=== PATIENT | female | born 1940 | race Caucasian/White ===

== ENCOUNTER → 2016-06-12 | Outpatient (CLI) | payer MEDICARE | LOC: GMAB 14:27 | PROVIDERS: ATTEND Family Medicine | DX: R06.02 Shortness of breath (principal) ==

== ENCOUNTER → 2016-12-08 | Outpatient (CLI) | payer MEDICARE | LOC: GMAB 10:09 | PROVIDERS: ATTEND Family Medicine | DX: I10 Essential (primary) hypertension (principal) ==

== ENCOUNTER → 2017-05-27 | Outpatient (CLI) | payer MEDICARE | END | disposition home or self-care (01) | LOC: RESP 13:52 | PROVIDERS: ATTEND Family Medicine | DX: R00.0 Tachycardia, unspecified (principal) ==

== ENCOUNTER → 2017-09-30 | Outpatient (CLI) | payer MEDICARE | LOC: GMAB 17:34 | PROVIDERS: ATTEND Family Medicine | DX: R19.7 Diarrhea, unspecified (principal) ==

== ENCOUNTER → 2018-02-01 | Outpatient (CLI) | payer MEDICARE | LOC: GMAE 14:45 | PROVIDERS: ATTEND Family Medicine | DX: I10 Essential (primary) hypertension (principal) ==

== ENCOUNTER → 2018-04-13 | Outpatient (CLI) | payer MEDICARE | LOC: YCFC.O 15:39 | PROVIDERS: ATTEND Family Medicine | DX: R07.9 Chest pain, unspecified (principal) ==

== ENCOUNTER 2018-08-04 19:23 | Emergency (ER) | payer MEDICARE ==
[2018-08-04 20:00] VITALS: TEMP 98.4
--- NOTE | 2018-08-04 20:29 | ED.PDOC ---
History of Present Illness - General Chief Complaint: Blood Pressure Problem Stated Complaint: elevated blood pressure Time Seen by Provider: 08/04/18 19:58 Source: patient Exam Limitations: no limitations - History of Present Illness Initial Comments: Patient presents with hypertension. She says it was 120s systolic this morning but over the course of the day it has increased. It was 150s systolic before she came to the E.D. She said that she had a tingling sensation in the back of her neck and left arm and hand that has since resolved. She has a history of anxiety and has a Xanax RX. She says she only takes it once every 2-3 months. She says she occasionally gets dyspnea but believes that is because of her weight because she can "run" in the swimming pool without getting short of breath. She denies history of AMI or CHF but says that a doctor did a "PET scan" of her heart and found a "spot on it". She was told her heart would get worse but that it hasn't, yet. Denies COPD or history of smoking. 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 She was on Lipitor once but it caused her liver enzymes to elevate so she stopped. She has taken all of her scheduled blood pressure medications today. She also has taken two half doses of Xanax today, once 7 hours PERIPHERAL VASCULAR TECH and another 4 hours PERIPHERAL VASCULAR TECH. Denies chest pain. No history of DM. No other complaints. Timing/Duration: other - 12 hours Severity: moderate Improving Factors: nothing Associated Symptoms: other - as in HPI Allergies/Adverse Reactions: Allergies NO KNOWN ALLERGY Allergy (Verified 08/04/18 19:59) Home Medications: Ambulatory Orders ALPRAZolam [Xanax] 0.25 mg PO DAILY 01/07/16 Aspirin [Aspirin Adult Low Dose] 81 mg PO DAILY 01/07/16 Chlorthalidone 25 mg PO DAILY 01/07/16 Esomeprazole Magnesium [Nexium] 40 mg PO DAILY 01/07/16 Metoprolol Succinate [Metoprolol Succinate ER] 50 mg PO BEDTIME 01/07/16 Valsartan 320 mg PO DAILY 01/07/16 amLODIPine BESYLATE [Norvasc] 2 mg PO DAILY 01/07/16 Review of Systems - Review of Systems Constitutional: States: no symptoms reported EENTM: States: no symptoms reported Respiratory: States: no symptoms reported Cardiology: States: see HPI Gastrointestinal/Abdominal: States: no symptoms reported Genitourinary: States: no symptoms reported Musculoskeletal: States: no symptoms reported Skin: States: no symptoms reported Neurological: States: no symptoms reported Endocrine: States: no symptoms reported Hematologic/Lymphatic: States: no symptoms reported Past Medical History (General) - Patient Medical History Hx Seizures: No Hx Stroke: No Hx Dementia: No Hx Asthma: No Hx of COPD: No Hx Cardiac Disorders: No Hx Congestive Heart Failure: No Hx Pacemaker: No Hx Hypertension: Yes Hx Thyroid Disease: No Hx Diabetes: No Hx Gastroesophageal Reflux: Yes Hx Renal Disease: No Hx Cancer: Yes - Breast Hx of HIV: No Hx Hepatitis C: No Hx MRSA: No Surgical History: cholecystectomy - Vaccination History Hx Tetanus, Diphtheria Vaccination: No Hx Influenza Vaccination: No Hx Pneumococcal Vaccination: No Immunizations Up to Date: No - Social History Hx Tobacco Use: No Hx Chewing Tobacco Use: No Hx Alcohol Use: No Hx Substance Use: No Hx Substance Use Treatment: No Hx Depression: No Hx Physical Abuse: No Hx Emotional Abuse: No Hx Suspected Abuse: No - Female History Patient is a Female of Child Bearing Age (10 -59 yrs old): No Patient : No Family Medical History - Family History Mother Family History: Unknown Physical Exam - Physical Exam General Appearance: Alert Eye Exam: bilateral normal Ears, Nose, Throat: normal ENT inspection Neck: non-tender, full range of motion, supple Respiratory: lungs clear, normal breath sounds Cardiovascular/Chest: normal peripheral pulses, regular rate, rhythm, no edema Gastrointestinal/Abdominal: normal bowel sounds, non tender, soft Back Exam: normal inspection, no CVA tenderness Extremity: normal range of motion, non-tender, normal inspection Neurologic: no motor/sensory deficits, alert, normal mood/affect, oriented x 3 Skin Exam: normal color Lymphatic: no adenopathy Progress - Progress Progress: 08/04/18 21:33 Laboratory Tests 08/04/18 08/04/18 08/04/18 20:08 20:08 20:08 WBC 8.5 RBC 4.33 Hgb 13.3 Hct 39.8 MCV 91.9 MCH 30.8 MCHC 33.5 RDW 12.5 Plt Count 249 MPV 8.2 Absolute Neuts (auto) 4.60 Absolute Lymphs (auto) 3.30 Absolute Monos (auto) 0.50 Absolute Eos (auto) 0.00 Absolute Basos (auto) 0.10 Neutrophils % 54.6 Lymphocytes % 38.4 Monocytes % 5.8 Eosinophils % 0.5 L Basophils % 0.7 PT INR PTT (SP) Sodium 129 L Potassium 3.3 L Chloride 93 L Carbon Dioxide 23 Anion Gap 16.3 BUN 15 Creatinine 0.91 BUN/Creatinine Ratio 16.5 Random Glucose 186 H Serum Osmolality 264.6 L Calcium 9.1 Total Bilirubin 0.6 AST 26 ALT 16 Alkaline Phosphatase 53 Creatine Kinase 37 CK-MB (CK-2) 1.4 CK-MB (CK-2) % Not Reportable Troponin I < 0.02 B-Natriuretic Peptide Serum Total Protein 7.8 Albumin 3.9 Globulin 3.9 H Albumin/Globulin Ratio 1.0 L TSH Thyroxine (T4) Urine Color Urine Appearance Urine pH Ur Specific [place] Urine Protein Urine Glucose (UA) Urine Ketones Urine Blood Urine Nitrite Urine Bilirubin Urine Urobilinogen Ur Leukocyte Esterase Urine RBC Urine WBC Ur Epithelial Cells Urine Bacteria 08/04/18 08/04/18 08/04/18 20:08 20:08 20:08 WBC RBC Hgb Hct MCV MCH MCHC RDW Plt Count MPV Absolute Neuts (auto) Absolute Lymphs (auto) Absolute Monos (auto) Absolute Eos (auto) Absolute Basos (auto) Neutrophils % Lymphocytes % Monocytes % Eosinophils % Basophils % PT 10.3 INR 1.03 PTT (SP) 27.2 Sodium Potassium Chloride Carbon Dioxide Anion Gap BUN Creatinine BUN/Creatinine Ratio Random Glucose Serum Osmolality Calcium Total Bilirubin AST ALT Alkaline Phosphatase Creatine Kinase CK-MB (CK-2) CK-MB (CK-2) % Troponin I B-Natriuretic Peptide 60.8 Serum Total Protein Albumin Globulin Albumin/Globulin Ratio TSH 2.76 Thyroxine (T4) 9.88 Urine Color Urine Appearance Urine pH Ur Specific [place] Urine Protein Urine Glucose (UA) Urine Ketones Urine Blood Urine Nitrite Urine Bilirubin Urine Urobilinogen Ur Leukocyte Esterase Urine RBC Urine WBC Ur Epithelial Cells Urine Bacteria 08/04/18 20:12 WBC RBC Hgb Hct MCV MCH MCHC RDW Plt Count MPV Absolute Neuts (auto) Absolute Lymphs (auto) Absolute Monos (auto) Absolute Eos (auto) Absolute Basos (auto) Neutrophils % Lymphocytes % Monocytes % Eosinophils % Basophils % PT INR PTT (SP) Sodium Potassium Chloride Carbon Dioxide Anion Gap BUN Creatinine BUN/Creatinine Ratio Random Glucose Serum Osmolality Calcium Total Bilirubin AST ALT Alkaline Phosphatase Creatine Kinase CK-MB (CK-2) CK-MB (CK-2) % Troponin I B-Natriuretic Peptide Serum Total Protein Albumin Globulin Albumin/Globulin Ratio TSH Thyroxine (T4) Urine Color Yellow Urine Appearance Clear Urine pH 6.0 Ur Specific [place] 1.010 Urine Protein Negative Urine Glucose (UA) Negative Urine Ketones Negative Urine Blood Negative Urine Nitrite Negative Urine Bilirubin Negative Urine Urobilinogen 0.2 Ur Leukocyte Esterase Negative Urine RBC 0 Urine WBC 1-3 Ur Epithelial Cells 1-3 Urine Bacteria 0 08/04/18 21:36 EKG read by me showed NSR with no ST changes nor T wave inversions. There was a LBBB that was on the previous EKG. Troponin negative. CXR showed no acute disease. The patient's blood pressure self corrected to 121/88 while she was in the E.D. She was instructed to follow up with Dr. Bashir for possible medication adjustments. Care instructions given. E.R. warnings given. Questions were elicited and answered. Patient voiced understanding and agreement with the plan. - EKG/XRAY/CT CT Ordered: No CT Interpretation Call Back: No Departure - Departure Clinical Impression: Hypertension Disposition: Discharge to Home or Self Care Condition: Good Departure Forms: ED Discharge - Pt. Copy, Patient Portal Self Enrollment Instructions: DI for High Blood Pressure Diet: resume usual diet Activity: increase activity as tolerated Referrals: ASHELY BASHIR MD [Primary Care Provider] - 1-2 Weeks Home Medications: Ambulatory Orders ALPRAZolam [Xanax] 0.25 mg PO DAILY 01/07/16 Aspirin [Aspirin Adult Low Dose] 81 mg PO DAILY 01/07/16 Chlorthalidone 25 mg PO DAILY 01/07/16 Esomeprazole Magnesium [Nexium] 40 mg PO DAILY 01/07/16 Metoprolol Succinate [Metoprolol Succinate ER] 50 mg PO BEDTIME 01/07/16 Valsartan 320 mg PO DAILY 01/07/16 amLODIPine BESYLATE [Norvasc] 2 mg PO DAILY 01/07/16 Additional Instructions: See Dr. Bashir in the next 1-2 weeks for possible adjustment of your blood pressure medications. Return to the E.R. for chest pain, light-headednes, or shortness of breath. Critical Care Note - Critical Care Note Total Time (mins): 35
[2018-08-04] MEDS ORDERED: METOPROLOL TARTRATE INJ 5 MG/5 ML VIAL IV ONE (20:45)
--- NOTE | 2018-08-04 20:45 | RAD ---
EXAM: Chest,1 View CLINICAL INDICATION: Hypertension COMPARISON: 01/07/2016 FINDINGS: A single view of the chest was obtained. The heart size is normal. The pulmonary vascularity is unremarkable. The lungs are clear. There is no consolidation, infiltrate, pleural effusion, or pneumothorax. IMPRESSION: No evidence of active pulmonary disease. Electronically signed by: Alex Bowie MD 08/04/2018 8:41 PM CDT
[2018-08-04 21:36] VITALS: BP 118/82; O2SAT 95
== END 2018-08-04 21:45 | disposition home or self-care (01) ==
LOC: ER 19:23
DX: I10 Essential (primary) hypertension (principal); K21.9 Gastro-esophageal reflux disease without esophagitis; F41.9 Anxiety disorder, unspecified; Z85.3 Personal history of malignant neoplasm of breast; Z79.82 Long term (current) use of aspirin; Z79.899 Other long term (current) drug therapy

== ENCOUNTER 2018-11-04 18:44 | Emergency (ER) | payer MEDICARE ==
[2018-11-04] MEDS ORDERED: LIDOCAINE HCL 2% (MOUTH-THROAT) 15 ML UD ONE (19:02)
[2018-11-04] MEDS ORDERED: ALUM & MAG HYDROX-SIMETHICONE 30 ML UD ONE (19:02)
[2018-11-04] MEDS: ALUM & MAG HYDROX-SIMETHICONE 30 ML, LIDOCAINE VISCOUS 2% 15 ML PO ONE ×6 (19:12→19:26)
--- NOTE | 2018-11-04 19:36 | RAD ---
EXAM: XR Chest, 2 Views CLINICAL HISTORY: 78 years old and is Female; upper chest pain TECHNIQUE: Frontal and lateral views of the chest. COMPARISON: 08/04/2018 FINDINGS: Limitations: None. Lungs: There is mild chronic airway thickening. Minimal linear scarring or atelectasis present in the right middle lobe. Pleural space: Unremarkable. No pneumothorax. Heart: Unremarkable. No cardiomegaly. Mediastinum: Unremarkable. Bones/joints: Unremarkable. IMPRESSION: Chronic changes as above. No acute disease. Electronically signed by: Carole Freeman MD 11/04/2018 7:34 PM CDT
[2018-11-04] MEDS ORDERED: POTASSIUM CHLORIDE ELIXIR 20 MEQ/15 ML UD PO ONE (19:48)
--- NOTE | 2018-11-04 20:38 | ED.PDOC ---
History of Present Illness - General Chief Complaint: General Stated Complaint: "feeling weird", blood pressure elevated, Time Seen by Provider: 11/04/18 18:57 Source: patient Exam Limitations: no limitations - History of Present Illness Initial Comments: the patient is a 78-year-old female presenting to the emergency room secondary to not feeling good for the last 2 or 3 days. She is currently taking azithromycin for an upper respiratory tract infection. She does have a history of GERD. She has had a mild burning in her posterior pharynx and upper chest for last couple of days since she has been on the azithromycin. She does have a history of low sodium and low potassium. No vomiting. No definite fever. No real shortness of breath. She is moderately hypertensive here. She does have severe anxiety. Timing/Duration: other - 3 days Severity: mild Improving Factors: nothing Worsening Factors: nothing Associated Symptoms: chest pain, malaise, nausea/vomiting Allergies/Adverse Reactions: Allergies NO KNOWN ALLERGY Allergy (Verified 08/04/18 19:59) Home Medications: Ambulatory Orders ALPRAZolam [Xanax] 0.25 mg PO DAILY 01/07/16 Aspirin [Aspirin Adult Low Dose] 81 mg PO DAILY 01/07/16 Chlorthalidone 25 mg PO DAILY 01/07/16 Esomeprazole Magnesium [Nexium] 40 mg PO DAILY 01/07/16 Metoprolol Succinate [Metoprolol Succinate ER] 50 mg PO BEDTIME 01/07/16 Valsartan 320 mg PO DAILY 01/07/16 amLODIPine BESYLATE [Norvasc] 2 mg PO DAILY 01/07/16 Sucralfate Tab [Carafate Tab] 1 gm PO QID #60 tab 11/04/18 Review of Systems - Review of Systems Constitutional: States: malaise EENTM: States: no symptoms reported Respiratory: States: cough Cardiology: States: chest pain Gastrointestinal/Abdominal: States: nausea Genitourinary: States: no symptoms reported Musculoskeletal: States: no symptoms reported Skin: States: no symptoms reported Neurological: States: anxiety Endocrine: States: no symptoms reported All other Systems: No Change from Baseline Past Medical History (General) - Patient Medical History Hx Seizures: No Hx Stroke: No Hx Dementia: No Hx Asthma: No Hx of COPD: No Hx Cardiac Disorders: No Hx Congestive Heart Failure: No Hx Pacemaker: No Hx Hypertension: Yes Hx Thyroid Disease: No Hx Diabetes: No Hx Gastroesophageal Reflux: Yes Hx Renal Disease: No Hx Cancer: Yes - Breast Hx of HIV: No Hx Hepatitis C: No Hx MRSA: No Surgical History: cancer surgery, cholecystectomy, other - Vaccination History Hx Tetanus, Diphtheria Vaccination: No Hx Influenza Vaccination: No Hx Pneumococcal Vaccination: No - Social History Hx Tobacco Use: No Hx Chewing Tobacco Use: No Hx Alcohol Use: No Hx Substance Use: No Hx Substance Use Treatment: No Hx Depression: No Hx Physical Abuse: No Hx Emotional Abuse: No Hx Suspected Abuse: No - Female History Patient : No Family Medical History - Family History Mother Family History: Unknown Physical Exam - Physical Exam General Appearance: Alert, Anxious, No apparent distress Eye Exam: bilateral normal Ears, Nose, Throat: hearing grossly normal, normal ENT inspection, normal phary nx Neck: full range of motion, supple Respiratory: lungs clear - the patient does have a mild clearing cough., normal breath sounds, no respiratory distress, no accessory muscle use Cardiovascular/Chest: normal peripheral pulses, no edema, other - regular rate Peripheral Pulses: radial,right: 2+, radial,left: 2+, dorsalis pedis,right: 2+, dorsalis pedis,left: 2+ Gastrointestinal/Abdominal: non tender, soft Rectal Exam: deferred Back Exam: no CVA tenderness, no vertebral tenderness Extremity: normal range of motion, non-tender, normal inspection, no pedal edema, normal capillary refill Neurologic: motor rebuilder II-XII nml as tested, alert, normal mood/affect, oriented x 3 Skin Exam: normal color Comments: Vital Signs - 24 hr 11/04/18 11/04/18 19:30 19:43 Temperature 98.9 F Pulse Rate [ 83 75 left] Respiratory 20 20 Rate Blood Pressure 215/103 181/84 [left] O2 Sat by Pulse 96 90 L Oximetry repeat blood pressures once the patient is relaxed are down in the 150s over 80s. Progress - Progress Progress: 11/04/18 20:41 the patient's 78-year-old female presenting to the emergency room with what appears to be a worsening of her gastroesophageal reflux disease likely due to the antibiotic. She is going to be placed on Carafate 4 times daily for the next 2 weeks. She needs to keep herself well-hydrated. She also has significant hyponatremia with sodium down to 129 and hypokalemia with a potassium down to 3.3. She did receive a dose of potassium here. I want to discontinue the chlorthalidone on her. She needs to follow back up with her primary care doctor later next week for a repeat Chem-8. ER warnings were given for any significant worsening. Patient has agreed to comply. - Results/Orders Results/Orders: chest x-ray shows no significant infiltrate. EKG shows chronic left bundle branch block. Normal sinus rhythm at 96 bpm. Difficult to interpret otherwise. this is consistent with previous EKGs. Laboratory Tests 11/04/18 11/04/18 11/04/18 19:20 19:20 19:20 WBC 8.0 RBC 4.38 Hgb 13.5 Hct 39.9 MCV 91.2 MCH 30.7 MCHC 33.7 RDW 12.4 Plt Count 254 MPV 8.5 Absolute Neuts (auto) 3.70 Absolute Lymphs (auto) 3.50 H Absolute Monos (auto) 0.60 Absolute Eos (auto) 0.10 Absolute Basos (auto) 0.10 Neutrophils % 46.7 Lymphocytes % 44.0 Monocytes % 7.1 Eosinophils % 1.0 Basophils % 1.2 PT 10.1 INR 1.01 PTT (SP) 28.0 Sodium 129 L Potassium 3.3 L Chloride 94 L Carbon Dioxide 20 L Anion Gap 18.3 H BUN 11 Creatinine 0.79 BUN/Creatinine Ratio 13.9 Random Glucose 131 H Serum Osmolality 260.1 L Calcium 9.4 Magnesium 1.7 L Total Bilirubin 0.6 AST 23 ALT 15 Alkaline Phosphatase 47 Creatine Kinase 49 CK-MB (CK-2) 1.5 CK-MB (CK-2) % Not Reportable Troponin I < 0.02 B-Natriuretic Peptide 85.7 Serum Total Protein 8.2 Albumin 4.1 Globulin 4.1 H Albumin/Globulin Ratio 1.0 L Amylase 52 Lipase 25 Urine Color Urine Appearance Urine pH Ur Specific [place] Urine Protein Urine Glucose (UA) Urine Ketones Urine Blood Urine Nitrite Urine Bilirubin Urine Urobilinogen Ur Leukocyte Esterase Urine RBC Urine WBC Ur Epithelial Cells Urine Bacteria 11/04/18 19:20 WBC RBC Hgb Hct MCV MCH MCHC RDW Plt Count MPV Absolute Neuts (auto) Absolute Lymphs (auto) Absolute Monos (auto) Absolute Eos (auto) Absolute Basos (auto) Neutrophils % Lymphocytes % Monocytes % Eosinophils % Basophils % PT INR PTT (SP) Sodium Potassium Chloride Carbon Dioxide Anion Gap BUN Creatinine BUN/Creatinine Ratio Random Glucose Serum Osmolality Calcium Magnesium Total Bilirubin AST ALT Alkaline Phosphatase Creatine Kinase CK-MB (CK-2) CK-MB (CK-2) % Troponin I B-Natriuretic Peptide Serum Total Protein Albumin Globulin Albumin/Globulin Ratio Amylase Lipase Urine Color Yellow Urine Appearance Clear Urine pH 6.5 Ur Specific [place] 1.010 Urine Protein Negative Urine Glucose (UA) Negative Urine Ketones Negative Urine Blood Negative Urine Nitrite Negative Urine Bilirubin Negative Urine Urobilinogen 0.2 Ur Leukocyte Esterase Negative Urine RBC 0 Urine WBC 0-1 Ur Epithelial Cells 0-1 Urine Bacteria 0 Departure - Departure Clinical Impression: Reflux esophagitis, Hyponatremia, Hypokalemia Disposition: Discharge to Home or Self Care Condition: Fair Departure Forms: ED Discharge - Pt. Copy, Patient Portal Self Enrollment Instructions: Hyponatremia (DC), Hypokalemia (DC), Acid Reflux (Gastroesophageal Reflux Disease), Adult (DC) Diet: bland diet Activity: increase activity as tolerated Referrals: ASHELY ROSAS MD [Primary Care Provider] - 1-2 Weeks Prescriptions: Sucralfate Tab [Carafate Tab] 1 gm PO QID #60 tab Home Medications: Ambulatory Orders ALPRAZolam [Xanax] 0.25 mg PO DAILY 01/07/16 Aspirin [Aspirin Adult Low Dose] 81 mg PO DAILY 01/07/16 Chlorthalidone 25 mg PO DAILY 01/07/16 Esomeprazole Magnesium [Nexium] 40 mg PO DAILY 01/07/16 Metoprolol Succinate [Metoprolol Succinate ER] 50 mg PO BEDTIME 01/07/16 Valsartan 320 mg PO DAILY 01/07/16 amLODIPine BESYLATE [Norvasc] 2 mg PO DAILY 01/07/16 Sucralfate Tab [Carafate Tab] 1 gm PO QID #60 tab 11/04/18 Additional Instructions: the patient's 78-year-old female presenting to the emergency room with what appears to be a worsening of her gastroesophageal reflux disease likely due to the antibiotic. She is going to be placed on Carafate 4 times daily for the next 2 weeks. She needs to keep herself well-hydrated. She also has significant hyponatremia with sodium down to 129 and hypokalemia with a potassium down to 3.3. She did receive a dose of potassium here. I want to discontinue the chlorthalidone on her. She needs to follow back up with her primary care doctor later next week for a repeat Chem-8. ER warnings were given for any significant worsening. Patient has agreed to comply.
[2018-11-04 21:05] VITALS: BP 130/72; TEMP 97.9; O2SAT 94
== END 2018-11-04 21:04 | disposition home or self-care (01) ==
LOC: ER 18:44
DX: K21.0 Gastro-esophageal reflux disease with esophagitis (principal); E87.1 Hypo-osmolality and hyponatremia; E87.6 Hypokalemia; I44.7 Left bundle-branch block, unspecified; I10 Essential (primary) hypertension; F41.9 Anxiety disorder, unspecified; Z85.3 Personal history of malignant neoplasm of breast; Z79.82 Long term (current) use of aspirin; Z79.899 Other long term (current) drug therapy

== ENCOUNTER 2018-11-07 19:47 | Emergency (ER) | payer MEDICARE ==
[2018-11-07 20:11] VITALS: TEMP 99.1
--- NOTE | 2018-11-07 20:19 | RAD ---
EXAM: Chest,1 View CLINICAL INDICATION: Chest burning COMPARISON: 11/04/2018 FINDINGS: A single view of the chest was obtained. The heart size is normal. The pulmonary vascularity is unremarkable. The lungs are clear. There is no consolidation, infiltrate, pleural effusion, or pneumothorax. IMPRESSION: No evidence of active pulmonary disease. Electronically signed by: Alex Bowie MD 11/07/2018 8:16 PM CDT
[2018-11-07] MEDS ORDERED: ALUM & MAG HYDROX-SIMETHICONE 30 ML, LIDOCAINE VISCOUS 2% 15 ML PO ONE ×2 (20:44)
[2018-11-07] MEDS ORDERED: ALUM & MAG HYDROX-SIMETHICONE 30 ML UD ONE (20:45)
[2018-11-07] MEDS ORDERED: LIDOCAINE HCL 2% (MOUTH-THROAT) 15 ML UD ONE (20:45)
--- NOTE | 2018-11-07 20:47 | ED.PDOC ---
History of Present Illness - General Chief Complaint: Chest Pain/NV Stated Complaint: feels like heart burn since she woke up Time Seen by Provider: 11/07/18 20:05 Source: patient Exam Limitations: no limitations - History of Present Illness Initial Comments: Patient presents with a burning in her chest for 4 days. She has a history of GERD and takes Nexium. Last week, she was taking azithromycin for acute sinusitis and her stomach started a burning sensation. She was told to stop the drug on Thursday. Since then, she has had significant GERD. She was given a GI cocktail in the E.R. yesterday and she said it helped. She was given an RX for Carafate but she was afraid to use it because she does not like medications. No dyspnea. No chest pain. Las BM was earlier today and was normal. No other complaints. Denies N/V. Timing/Duration: other - 4 days Severity: mild Improving Factors: nothing Worsening Factors: eating Associated Symptoms: denies symptoms Allergies/Adverse Reactions: Allergies Azithromycin [From [employer]] Allergy (Verified 11/07/18 20:11) Home Medications: Ambulatory Orders ALPRAZolam [Xanax] 0.25 mg PO DAILY 01/07/16 Aspirin [Aspirin Adult Low Dose] 81 mg PO DAILY 01/07/16 Chlorthalidone 25 mg PO DAILY 01/07/16 Esomeprazole Magnesium [Nexium] 40 mg PO DAILY 01/07/16 Metoprolol Succinate [Metoprolol Succinate ER] 50 mg PO BEDTIME 01/07/16 amLODIPine BESYLATE [Norvasc] 2 mg PO DAILY 01/07/16 Sucralfate Tab [Carafate Tab] 1 gm PO QID #60 tab 11/04/18 Losartan Potassium 100 mg PO DAILY 11/07/18 Potassium Chloride [Potassium Chloride ER] 10 meq PO DAILY 11/07/18 Review of Systems - Review of Systems Constitutional: States: no symptoms reported EENTM: States: no symptoms reported Respiratory: States: no symptoms reported Cardiology: States: no symptoms reported Gastrointestinal/Abdominal: States: see HPI Musculoskeletal: States: no symptoms reported Skin: States: no symptoms reported Neurological: States: no symptoms reported Endocrine: States: no symptoms reported Hematologic/Lymphatic: States: no symptoms reported Past Medical History (General) - Patient Medical History Hx Seizures: No Hx Stroke: No Hx Dementia: No Hx Asthma: No Hx of COPD: No Hx Cardiac Disorders: No Hx Congestive Heart Failure: No Hx Pacemaker: No Hx Hypertension: Yes Hx Thyroid Disease: No Hx Diabetes: No Hx Gastroesophageal Reflux: Yes Hx Renal Disease: No Hx Cancer: Yes - Breast Hx of HIV: No Hx Hepatitis C: No Hx MRSA: No Surgical History: cholecystectomy - Vaccination History Hx Tetanus, Diphtheria Vaccination: No Hx Influenza Vaccination: No Hx Pneumococcal Vaccination: No - Social History Hx Tobacco Use: No Hx Chewing Tobacco Use: No Hx Alcohol Use: No Hx Substance Use: No Hx Substance Use Treatment: No Hx Depression: No Hx Physical Abuse: No Hx Emotional Abuse: No Hx Suspected Abuse: No - Female History Patient : No Family Medical History - Family History Mother Family History: Unknown Physical Exam - Physical Exam General Appearance: Alert Eye Exam: bilateral normal Ears, Nose, Throat: normal ENT inspection Neck: non-tender, full range of motion, supple Respiratory: lungs clear, normal breath sounds Cardiovascular/Chest: normal peripheral pulses, regular rate, rhythm, no edema Gastrointestinal/Abdominal: normal bowel sounds, non tender, soft Back Exam: normal inspection, no CVA tenderness Extremity: normal range of motion, non-tender, normal inspection Neurologic: no motor/sensory deficits, alert, normal mood/affect, oriented x 3 Skin Exam: normal color Lymphatic: no adenopathy Progress - Progress Progress: 11/07/18 21:24 Laboratory Tests 11/07/18 11/07/18 11/07/18 20:05 20:05 20:05 WBC 6.9 RBC 4.30 Hgb 13.4 Hct 39.8 MCV 92.5 MCH 31.1 H MCHC 33.7 RDW 12.3 Plt Count 259 MPV 8.2 Absolute Neuts (auto) 2.90 Absolute Lymphs (auto) 3.20 Absolute Monos (auto) 0.60 Absolute Eos (auto) 0.10 Absolute Basos (auto) 0.10 Neutrophils % 41.5 L Lymphocytes % 46.8 Monocytes % 9.1 H Eosinophils % 1.1 Basophils % 1.5 PT 10.3 INR 1.03 PTT (SP) 27.6 Sodium 129 L Potassium 3.4 L Chloride 95 L Carbon Dioxide 22 Anion Gap 15.4 BUN 10 Creatinine 0.85 BUN/Creatinine Ratio 11.8 Random Glucose 103 Serum Osmolality 258.2 L Calcium 9.0 Total Bilirubin 0.5 AST 18 ALT 15 Alkaline Phosphatase 47 Creatine Kinase CK-MB (CK-2) CK-MB (CK-2) % Troponin I B-Natriuretic Peptide Serum Total Protein 7.4 Albumin 3.8 Globulin 3.6 H Albumin/Globulin Ratio 1.1 11/07/18 20:06 WBC RBC Hgb Hct MCV MCH MCHC RDW Plt Count MPV Absolute Neuts (auto) Absolute Lymphs (auto) Absolute Monos (auto) Absolute Eos (auto) Absolute Basos (auto) Neutrophils % Lymphocytes % Monocytes % Eosinophils % Basophils % PT INR PTT (SP) Sodium Potassium Chloride Carbon Dioxide Anion Gap BUN Creatinine BUN/Creatinine Ratio Random Glucose Serum Osmolality Calcium Total Bilirubin AST ALT Alkaline Phosphatase Creatine Kinase 40 CK-MB (CK-2) 0.8 CK-MB (CK-2) % Not Reportable Troponin I < 0.02 B-Natriuretic Peptide 88.6 Serum Total Protein Albumin Globulin Albumin/Globulin Ratio EKG showed LBBB similar to previous. Troponin negative. Patient improved after a GI cocktail. This is not likely cardiac. the patient is currently non-compliant with her medications. However, after speaking with her, she agreed to complay with her Nexium and Carafate. Care instructions given. E.R. warnings given. Questions were elicited and answered. Patient voiced understanding and agreement with the plan. Departure - Departure Clinical Impression: Gastroesophageal reflux disease, Gastritis Disposition: Discharge to Home or Self Care Condition: Good Departure Forms: ED Discharge - Pt. Copy, Patient Portal Self Enrollment Instructions: Acid Reflux (Gastroesophageal Reflux Disease), Adult (DC), Low Cholesterol, Saturated Fat, and Trans Fat Diet Diet: low fat, low cholesterol, other - Decrease caffeine and spicy foods as well. Activity: increase activity as tolerated Referrals: ASHELY ROSAS MD [Primary Care Provider] - 1-2 Weeks Home Medications: Ambulatory Orders ALPRAZolam [Xanax] 0.25 mg PO DAILY 01/07/16 Aspirin [Aspirin Adult Low Dose] 81 mg PO DAILY 01/07/16 Chlorthalidone 25 mg PO DAILY 01/07/16 Esomeprazole Magnesium [Nexium] 40 mg PO DAILY 01/07/16 Metoprolol Succinate [Metoprolol Succinate ER] 50 mg PO BEDTIME 01/07/16 amLODIPine BESYLATE [Norvasc] 2 mg PO DAILY 01/07/16 Sucralfate Tab [Carafate Tab] 1 gm PO QID #60 tab 11/04/18 Losartan Potassium 100 mg PO DAILY 11/07/18 Potassium Chloride [Potassium Chloride ER] 10 meq PO DAILY 11/07/18 Additional Instructions: Try your medications as prescribed for at least 2-4 weeks. 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 It is also important to follow a low fat, low cholesterol diet, avoid caffeine and alcohol, avoid spicy foods and refined sugars. Critical Care Note - Critical Care Note Total Time (mins): 35
[2018-11-07 21:38] VITALS: BP 124/60; O2SAT 98
== END 2018-11-07 21:40 | disposition home or self-care (01) ==
LOC: ER 19:47
DX: K21.9 Gastro-esophageal reflux disease without esophagitis (principal); K29.70 Gastritis, unspecified, without bleeding; I44.7 Left bundle-branch block, unspecified; I10 Essential (primary) hypertension; Z90.49 Acquired absence of other specified parts of digestive tract; Z85.3 Personal history of malignant neoplasm of breast; Z79.899 Other long term (current) drug therapy; Z79.82 Long term (current) use of aspirin; Z88.1 Allergy status to other antibiotic agents

== ENCOUNTER → 2018-11-19 | Outpatient (CLI) | payer MEDICARE | LOC: LAB.O 10:34 | PROVIDERS: ATTEND Internal Medicine Nephrology | DX: I10 Essential (primary) hypertension (principal) ==

== ENCOUNTER → 2018-11-24 | Outpatient (CLI) | payer MEDICARE ==
--- NOTE | 2018-11-25 11:23 | US ---
EXAM DESCRIPTION: Renal (accession [id number]), Renal Arteries (accession [id number]): Ultrasound. CLINICAL HISTORY: Essential (primary) hypertension COMPARISON: Two-dimensional ultrasound evaluation of the bilateral kidneys on the same visit. TECHNIQUE: Transcutaneous scanning: Grayscale mode. Doppler systolic and diastolic measurements of the abdominal aorta, renal arteries, intra renal arteries, and renal veins. FINDINGS: The right kidney measures 10.1 x 4.7 x 3.9 cm; increased cortical echogenicity, less than the liver. Normal cortical thickness. No hydronephrosis or large calcifications. Smooth contour of the kidney with no perinephric fluid. Proximal ureter not visualized. The left kidney measures 10.2 x 5.6 x 5.5 cm; increased cortical echogenicity, less than the liver. Normal cortical thickness. No hydronephrosis or large calcifications. Smooth contour of the kidney with no perinephric fluid. Proximal ureter not visualized. Well-circumscribed 4.2 cm cyst mid kidney. Distal ureters not visualized bilaterally. Urinary bladder was not visualized. Vessel diameter (cm): Aorta-Proximal: Not measured Mid: 1.6 cm Distal: Not measured JAGRUTI- Right: Not measured Left: Not measured PSV (cm/sec): Aorta: 86.0 Right renal artery: 84.8 Left renal artery: 163.8 EDV (cm/sec): Right renal artery: 17.5 Left renal artery: 29 Renal veins: Visualized. IVC: Unremarkable. Intrarenal RI's: Superior/Segmental Right: 0.82 Left: 0.82. Middle/Interlobular Right: 0.75 Left: 0.82. Inferior/Arcuate Right: 0.79 Left: 0.86 Renal Aortic Ratio: Right RAR = RRA PSV/Aortic PSV = 84.8 /86= 0.99. Left RAR = LRA PSV/Aortic PSV = 163.8/86 = 1.91. End Diastolic Ratio: Right EDR = RRA EDV/RRA PSV = 17.5/84.8 = 0.21. Left EDR = LRA EDV/LRA PSV = 29/163.8= 0.18. Other: None.. IMPRESSION: 1. Normal size of the kidneys and normal cortical thickness. Increased cortical echogenicity but less than that of the liver. No lobulations hydronephrosis, echogenic stones. No perirenal fluid. 2. Bilateral renal aortic ratios are within the normal range. 3. Increased resistive indices in the renal parenchyma bilaterally and abnormally low end diastolic velocities bilaterally, indicate significant renal vascular parenchymal disease. Electronically signed by: Jax Garcia MD 11/25/2018 11:21 AM CDT
== END ==
LOC: US 09:00
PROVIDERS: ATTEND Internal Medicine Nephrology
DX: I10 Essential (primary) hypertension (principal); I70.1 Atherosclerosis of renal artery

== ENCOUNTER → 2019-03-08 | Outpatient (CLI) | payer MEDICARE | LOC: LAB.O 08:03 | PROVIDERS: ATTEND Family Medicine | DX: I10 Essential (primary) hypertension (principal); R53.83 Other fatigue; E78.5 Hyperlipidemia, unspecified ==

== ENCOUNTER → 2019-06-30 | Outpatient (CLI) | payer MEDICARE | LOC: RESP 13:58 | PROVIDERS: ATTEND Family Medicine | DX: R00.1 Bradycardia, unspecified (principal) ==

== ENCOUNTER → 2019-11-30 | Outpatient (CLI) | payer MEDICARE | LOC: GMAE 10:38 | PROVIDERS: ATTEND Family Medicine | DX: Z85.3 Personal history of malignant neoplasm of breast (principal); E11.9 Type 2 diabetes mellitus without complications; E87.6 Hypokalemia ==

== ENCOUNTER 2020-06-23 18:36 | Emergency (ER) | payer MEDICARE ==
[2020-06-23] MEDS ORDERED: ALUMINUM & MAGNESIUM HYDROXIDE 30 ML UD PO ONE ×2 (19:10→20:37)
[2020-06-23] MEDS ORDERED: ONDANSETRON ODT 8 MG TAB SL ONE (19:10)
[2020-06-23] MEDS ORDERED: IBUPROFEN 200 MG TAB PO ONE (19:10)
[2020-06-23] MEDS ORDERED: levoFLOXacin 500MG IV 500 MG in PREMIX BAG 1 BAG IVPB ONE (19:39)
[2020-06-23] MEDS ORDERED: cefTRIAXone SODIUM 1 GM in SODIUM CHL 0.9% 50ML MIN-BAG+ 50 ML IVPB ONE (19:39)
--- NOTE | 2020-06-23 19:46 | RAD ---
EXAM: Chest,1 View CLINICAL INDICATION: Fever of unknown origin COMPARISON: 11/07/2018 FINDINGS: A single view of the chest was obtained. Atherosclerotic calcifications are noted involving the aorta. The heart size is normal. The pulmonary vascularity is unremarkable. The lungs are clear. There is no consolidation, infiltrate, pleural effusion, or pneumothorax. IMPRESSION: No evidence of active pulmonary disease. Electronically signed by: Alex Bowie MD 06/23/2020 7:45 PM PSYCHODRAMATIST
[2020-06-23] MEDS ORDERED: SODIUM CHLORIDE 0.9% 1000ML 1,000 ML IVS ONE (20:07)
[2020-06-23] MEDS ORDERED: PANTOPRAZOLE SODIUM IV 40 MG VIAL IV ONE (20:38)
--- NOTE | 2020-06-23 21:26 | ED.PDOC ---
History of Present Illness - General Chief Complaint: General Stated Complaint: Fever, chills, N/V/D Time Seen by Provider: 06/23/20 19:09 Source: patient Exam Limitations: no limitations - History of Present Illness Initial Comments: The patient is a 80-year-old female presented emergency room secondary to symptoms of fevers and chills that she has been experiencing mainly today. Minimal other symptoms. She is extremely anxious and does have chronic longstanding gastritis issues. No chest pain or shortness of breath. She is extremely anxious. Timing/Duration: other - 12 hours Severity: moderate Improving Factors: nothing Worsening Factors: nothing Associated Symptoms: diaphoresis, fever/chills, malaise, nausea/vomiting Allergies/Adverse Reactions: Allergies Azithromycin [From [facility]] Allergy (Verified 11/07/18 20:11) Home Medications: Ambulatory Orders ALPRAZolam [Xanax] 0.25 mg PO DAILY 01/07/16 Aspirin [Aspirin Adult Low Dose] 81 mg PO DAILY 01/07/16 Chlorthalidone 25 mg PO DAILY 01/07/16 Esomeprazole Magnesium [Nexium] 40 mg PO DAILY 01/07/16 Metoprolol Succinate [Metoprolol Succinate ER] 50 mg PO BEDTIME 01/07/16 amLODIPine BESYLATE [Norvasc] 2 mg PO DAILY 01/07/16 Sucralfate Tab [Carafate Tab] 1 gm PO QID #60 tab 11/04/18 Losartan Potassium 100 mg PO DAILY 11/07/18 Potassium Chloride [Potassium Chloride ER] 10 meq PO DAILY 11/07/18 Amoxicillin & Pot Clavulanate [Augmentin Tab] 875 mg PO BID #14 tab 06/23/20 Ciprofloxacin [Cipro] 500 mg PO BID #14 tab 06/23/20 Sucralfate Tab [Carafate Tab] 1 gm PO QID #60 tab 06/23/20 Review of Systems - Review of Systems Constitutional: States: fever, malaise EENTM: States: no symptoms reported Respiratory: States: no symptoms reported Cardiology: States: no symptoms reported Gastrointestinal/Abdominal: States: no symptoms reported Genitourinary: States: frequency Musculoskeletal: States: no symptoms reported Skin: States: no symptoms reported Neurological: States: no symptoms reported Endocrine: States: no symptoms reported All other Systems: No Change from Baseline Past Medical History (General) - Patient Medical History Hx Seizures: No Hx Stroke: No Hx Dementia: No Hx Asthma: No Hx of COPD: No Hx Cardiac Disorders: Yes - NV Hx Congestive Heart Failure: No Hx Pacemaker: No Hx Hypertension: Yes Hx Thyroid Disease: No Hx Diabetes: No Hx Gastroesophageal Reflux: Yes Hx Renal Disease: No Hx Cancer: Yes Hx of HIV: No Hx Hepatitis C: No Hx MRSA: No Surgical History: cancer surgery, cholecystectomy, other - Vaccination History Hx Tetanus, Diphtheria Vaccination: No Hx Influenza Vaccination: No Hx Pneumococcal Vaccination: No - Social History Hx Tobacco Use: No Hx Chewing Tobacco Use: No Hx Alcohol Use: No Hx Substance Use: No Hx Substance Use Treatment: No Hx Depression: No Hx Physical Abuse: No Hx Emotional Abuse: No Hx Suspected Abuse: No - Female History Patient is a Female of Child Bearing Age (10 -59 yrs old): No Patient : No Family Medical History - Family History Mother Family History: Unknown Physical Exam - Physical Exam General Appearance: Alert, Anxious Eye Exam: bilateral normal Ears, Nose, Throat: hearing grossly normal, normal pharynx Neck: full range of motion, supple Respiratory: lungs clear, normal breath sounds, no respiratory distress, no accessory muscle use Cardiovascular/Chest: normal peripheral pulses, no edema, other - Initially tachycardic but tachycardia resolved once fever resolves Peripheral Pulses: radial,right: 2+, radial,left: 2+ Gastrointestinal/Abdominal: non tender - Morbidly obese, soft Rectal Exam: deferred Back Exam: no CVA tenderness, no vertebral tenderness Extremity: normal range of motion, non-tender, normal inspection, no pedal edema, normal capillary refill Neurologic: 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 It appears this is due to a significant urinary tract infection. The patient is going to be double covered secondary to her history of urinary tract infections with Augmentin and ciprofloxacin. She received doses of antibiotics here tonight. She does not medication with food to prevent stomach upset. I am additionally going to write the patient 2 weeks of Carafate to reduce stomach upset as well. She needs to keep her self well-hydrated. The patient did receive a liter of IV fluids here secondary to a mild lactic acidosis. There is a fair case for putting this patient in the hospital to perform IV antibiotics, however due to the prevalence of coronavirus the decision has been made to allow the patient to go home with oral antibiotics. Obviously if the patient is worsening in any way then she is to return here. Additionally the patient's fever appears to respond much better to Motrin than to Tylenol. When she takes that she does need to take it with some food. ER warnings are given. andre pat - Results/Orders Results/Orders: Laboratory Tests 06/23/20 06/23/20 06/23/20 19:05 19:05 19:05 WBC 10.4 RBC 4.01 L Hgb 12.2 Hct 37.1 MCV 92.6 MCH 30.4 MCHC 32.8 L RDW 13.0 Plt Count 230 MPV 8.5 Absolute Neuts (auto) 8.70 H Absolute Lymphs (auto) 1.10 Absolute Monos (auto) 0.50 Absolute Eos (auto) 0.00 Absolute Basos (auto) 0.10 Neutrophils % 83.7 H Lymphocytes % 10.6 L Monocytes % 4.8 Eosinophils % 0.2 L Basophils % 0.7 Sodium 133 L Potassium 3.7 Chloride 101 Carbon Dioxide 20 L Anion Gap 15.7 BUN 12 Creatinine 1.05 BUN/Creatinine Ratio 11.4 Random Glucose 141 H Serum Osmolality 268.5 L Lactic Acid 2.3 H Calcium 8.9 Total Bilirubin 0.9 AST 21 ALT 14 Alkaline Phosphatase 54 Creatine Kinase 26 CK-MB (CK-2) 0.8 CK-MB (CK-2) % Not Reportable Troponin I 0.03 Serum Total Protein 7.6 Albumin 3.7 Globulin 3.9 H Albumin/Globulin Ratio 0.9 L Amylase 42 Lipase 22 Urine Color Urine Appearance Urine pH Ur Specific [place] Urine Protein Urine Glucose (UA) Urine Ketones Urine Blood Urine Nitrite Urine Bilirubin Urine Urobilinogen Ur Leukocyte Esterase Urine RBC Urine WBC Ur Epithelial Cells Urine Bacteria Group A Strep Rapid 06/23/20 06/23/20 19:10 19:15 WBC RBC Hgb Hct MCV MCH MCHC RDW Plt Count MPV Absolute Neuts (auto) Absolute Lymphs (auto) Absolute Monos (auto) Absolute Eos (auto) Absolute Basos (auto) Neutrophils % Lymphocytes % Monocytes % Eosinophils % Basophils % Sodium Potassium Chloride Carbon Dioxide Anion Gap BUN Creatinine BUN/Creatinine Ratio Random Glucose Serum Osmolality Lactic Acid Calcium Total Bilirubin AST ALT Alkaline Phosphatase Creatine Kinase CK-MB (CK-2) CK-MB (CK-2) % Troponin I Serum Total Protein Albumin Globulin Albumin/Globulin Ratio Amylase Lipase Urine Color Yellow Urine Appearance Sl cloudy Urine pH 6.0 Ur Specific [place] 1.015 Urine Protein 100 H Urine Glucose (UA) Negative Urine Ketones Negative Urine Blood Moderate H Urine Nitrite Negative Urine Bilirubin Negative Urine Urobilinogen 0.2 Ur Leukocyte Esterase Large H Urine RBC 10-20 H Urine WBC >50 H Ur Epithelial Cells 1-3 Urine Bacteria 1+ Group A Strep Rapid Negative Chest x-ray shows no acute pathology. Rapid flu is negative. Rapid coronavirus is negative. Rapid strep is negative. Departure - Departure Clinical Impression: Urinary tract infection Qualifiers: Urinary tract infection type: acute cystitis Hematuria presence: without hematuria Qualified Code(s): N30.00 - Acute cystitis without hematuria Chronic gastritis Qualifiers: Gastritis type: unspecified gastritis Gastritis bleeding: without bleeding Qualified Code(s): K29.50 - Unspecified chronic gastritis without bleeding Disposition: Discharge to Home or Self Care Condition: Fair Departure Forms: ED Discharge - Pt. Copy, Patient Portal Self Enrollment Instructions: Urinary Tract Infection, Adult (DC) Diet: diabetic diet Activity: increase activity as tolerated Referrals: ASHELY ROSAS MD [Primary Care Provider] - 1-2 Weeks Prescriptions: Amoxicillin & Pot Clavulanate [Augmentin Tab] 875 mg PO BID #14 tab Sucralfate Tab [Carafate Tab] 1 gm PO QID #60 tab Ciprofloxacin [Cipro] 500 mg PO BID #14 tab Home Medications: Ambulatory Orders ALPRAZolam [Xanax] 0.25 mg PO DAILY 01/07/16 Aspirin [Aspirin Adult Low Dose] 81 mg PO DAILY 01/07/16 Chlorthalidone 25 mg PO DAILY 01/07/16 Esomeprazole Magnesium [Nexium] 40 mg PO DAILY 01/07/16 Metoprolol Succinate [Metoprolol Succinate ER] 50 mg PO BEDTIME 01/07/16 amLODIPine BESYLATE [Norvasc] 2 mg PO DAILY 01/07/16 Sucralfate Tab [Carafate Tab] 1 gm PO QID #60 tab 11/04/18 Losartan Potassium 100 mg PO DAILY 11/07/18 Potassium Chloride [Potassium Chloride ER] 10 meq PO DAILY 11/07/18 Amoxicillin & Pot Clavulanate [Augmentin Tab] 875 mg PO BID #14 tab 06/23/20 Ciprofloxacin [Cipro] 500 mg PO BID #14 tab 06/23/20 Sucralfate Tab [Carafate Tab] 1 gm PO QID #60 tab 06/23/20 Additional Instructions: The patient is a 80-year-old female presented emergency room secondary to fever essentially. It appears this is due to a significant urinary tract infection. The patient is going to be double covered secondary to her history of urinary tract infections with Augmentin and ciprofloxacin. She received doses of antibiotics here tonight. She does not medication with food to prevent stomach upset. I am additionally going to write the patient 2 weeks of Carafate to reduce stomach upset as well. She needs to keep her self well-hydrated. The patient did receive a liter of IV fluids here secondary to a mild lactic acidosis. There is a fair case for putting this patient in the hospital to perform IV antibiotics, however due to the prevalence of coronavirus the decision has been made to allow the patient to go home with oral antibiotics. Obviously if the patient is worsening in any way then she is to return here. Additionally the patient's fever appears to respond much better to Motrin than to Tylenol. When she takes that she does need to take it with some food. ER warnings are given.
[2020-06-23 21:37] VITALS: O2SAT 98
[2020-06-23 21:38] VITALS: BP 135/64
[2020-06-23 21:52] VITALS: TEMP 100.5
== END 2020-06-23 21:52 | disposition home or self-care (01) ==
LOC: ER 18:36
DX: K29.50 Unspecified chronic gastritis without bleeding (principal); N30.00 Acute cystitis without hematuria; I25.2 Old myocardial infarction; I10 Essential (primary) hypertension; K21.9 Gastro-esophageal reflux disease without esophagitis; Z20.822 Contact with and (suspected) exposure to COVID-19; Z85.9 Personal history of malignant neoplasm, unspecified; Z79.899 Other long term (current) drug therapy; Z79.82 Long term (current) use of aspirin; Z88.1 Allergy status to other antibiotic agents; Z90.49 Acquired absence of other specified parts of digestive tract
CPT/HCPCS: 71045; 80053; 81001; 82150; 82550; 82553; 83605; 83690; 84484; 85025; 87040; 87086; 87088; 87186; 87502; 87635; 87880; J0696; J1956; J7030; J7050

== ENCOUNTER 2020-07-03 12:35 | Observation (INO) | payer MEDICARE ==
--- NOTE | 2020-07-03 12:43 | ED.PDOC ---
History of Present Illness - General Stated Complaint: Passed out Time Seen by Provider: 07/03/20 12:43 Source: patient, family Exam Limitations: no limitations Additional Information: Patient passed out in the emergency department while sitting with her who is also a patient. Patient was Unconscious for 5 to 10 seconds, during which she did not respond to verbal or painful stimuli. There was no seizure ac tivity noted. The patient was immediately alert upon awakening. She did not have any facial weakness slurred speech or ulnar drift to suggest a stroke upon awakening. After this the patient vomited. Patient treated in this emergency department June 23 for UTI with infection. She was given IV antibiotics at that time and discharged. - History of Present Illness Initial Comments: Patient passed out in the emergency room just before examination. She denies chest pain or dyspnea. She denies headache. Patient was recently treated for urinary tract infection and since that time has been vomiting occasionally, 3 or 4 times in the last 24 hours. Her has been diagnosed with a positive Covid test in the emergency department. Patient has had a slight coughWhich is nonproductive and is followed by post-tussive emesis. Her temperatures have been running 98.7-100.2 in the last week. Patient denies any urinary symptoms at present. Timing/Duration: momentarily Severity: severe Improving Factors: nothing Worsening Factors: nothing Associated Symptoms: cough, fever/chills, nausea/vomiting Allergies/Adverse Reactions: Allergies Azithromycin [From [facility]] Allergy (Verified 07/03/20 12:47) Home Medications: Ambulatory Orders ALPRAZolam [Xanax] 0.25 mg PO DAILY 01/07/16 Aspirin [Aspirin Adult Low Dose] 81 mg PO DAILY 01/07/16 Chlorthalidone 25 mg PO DAILY 01/07/16 Esomeprazole Magnesium [Nexium] 40 mg PO DAILY 01/07/16 Metoprolol Succinate [Metoprolol Succinate ER] 50 mg PO BEDTIME 01/07/16 amLODIPine BESYLATE [Norvasc] 2 mg PO DAILY 01/07/16 Losartan Potassium 100 mg PO DAILY 11/07/18 Potassium Chloride [Potassium Chloride ER] 10 meq PO DAILY 11/07/18 Review of Systems - Review of Systems Constitutional: States: see HPI, fever EENTM: States: throat pain Respiratory: States: see HPI, cough. Denies: short of breath Cardiology: Denies: chest pain Gastrointestinal/Abdominal: States: see HPI, nausea, vomiting. Denies: abdo guillermina pain Genitourinary: States: no symptoms reported Musculoskeletal: States: no symptoms reported Skin: States: no symptoms reported Neurological: States: see HPI. Denies: headache, numbness, seizure, weakness Endocrine: States: no symptoms reported Hematologic/Lymphatic: States: no symptoms reported Past Medical History (General) - Patient Medical History Hx Seizures: No Hx Stroke: No Hx Dementia: No Hx Asthma: No Hx of COPD: No Hx Cardiac Disorders: Yes - ND Hx Congestive Heart Failure: No Hx Pacemaker: No Hx Hypertension: Yes Hx Thyroid Disease: No Hx Diabetes: No Hx Gastroesophageal Reflux: Yes Hx Renal Disease: No Hx Cancer: Yes Hx of HIV: No Hx Hepatitis C: No Hx MRSA: No - Vaccination History Hx Tetanus, Diphtheria Vaccination: No Hx Influenza Vaccination: No Hx Pneumococcal Vaccination: No - Social History Hx Tobacco Use: No Hx Chewing Tobacco Use: No Hx Alcohol Use: No Hx Substance Use: No Hx Substance Use Treatment: No Hx Depression: No Hx Physical Abuse: No Hx Emotional Abuse: No Hx Suspected Abuse: No - Female History Patient : No Family Medical History - Family History Mother Family History: Unknown Physical Exam - Physical Exam General Appearance: Alert, Comfortable, Other - Initially unresponsive for 5 to 10 seconds as noted in the history of present illness. 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, Scott Martinez At 2:57 PM. He agreed admit the patient to the hospital. Remdesivir and Decadron IV ordered. 07/03/20 15:02 Ceftriaxone IV ordered. Azithromycin withheld due to allergy. Medical decision makin-year-old female with syncopal episode witnessed in the emergency department. Patient does not have any physical findings or symptoms suggestive of stroke. She does not have any evidence of a dysrhythmia at this time. She does have a COVID-19 infection. She has been treated for the COVID-19 and will be observed as an inpatient in the hospital. - Results/Orders Results/Orders: Electrocardiogram: Normal sinus rhythm, 69/min. Left axis deviation with left bundle branch block. This is pre-existing per the patient and her family. No acute STT changes. EXAM DESCRIPTION: Chest,1 View CLINICAL HISTORY: Cough, suspected COVID-19 FINDINGS/ IMPRESSION: Comparison 06/23/2020 A faint area of groundglass/patchy opacity in the left mid to lower lung zone and retrocardiac compatible with infectious infiltrate. COVID-19 could give this appearance. Right lung is clear. No pleural effusion. No pneumothorax. 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 07/03/20 12:45 EKG STAT 07/03/20 14:07 KCl 20Meq/Water For Inj 100Ml [Potassium 20meq in Water 100ml] 20 meq Premix Bag 1 bag IVPB ONCE 07/03/20 14:55 B-TYPE NATRIURETIC PEPTIDE/BNP Stat 07/03/20 14:56 Isolation:Airborne ONCE C-REACTIVE PROTEIN Stat LD-L/LDH Stat MAGNESIUM Stat D-DIMER,QUANTITATIVE Stat SARS-COV2 RT-PCR HIGH RISK Stat RAPID SARS-CoV-2 RNA Stat 07/03/20 14:57 FERRITIN Stat FIBRINOGEN Stat PARTIAL THROMBOPLASTIN TIME Stat PROTHROMBIN TIME Stat 07/03/20 14:58 Remdesivir 200 mg Sodium Chloride 0.9% 250Ml [NS 250ml] 250 ml IVPB ONCE 07/03/20 14:59 MAGNESIUM Stat 07/03/20 15:00 Pulse Ox, Continuous Monitoring STAT 07/04/20 15:00 Pulse Ox, Continuous Monitoring STAT 07/05/20 15:00 Pulse Ox, Continuous Monitoring STAT Laboratory Results - last 24 hr 07/03/20 07/03/20 07/03/20 12:52 12:52 13:20 WBC 6.1 RBC 4.34 Hgb 13.1 Hct 39.4 MCV 90.7 MCH 30.2 MCHC 33.3 RDW 12.8 Plt Count 256 MPV 8.3 Absolute Neuts (auto) 2.80 Absolute Lymphs (auto) 2.70 Absolute Monos (auto) 0.40 Absolute Eos (auto) 0.00 Absolute Basos (auto) 0.00 Neutrophils % 46.5 Lymphocytes % 45.3 Monocytes % 7.0 Eosinophils % 0.5 L Basophils % 0.7 Sodium 128 L Potassium 3.2 L Chloride 95 L Carbon Dioxide 21 Anion Gap 15.2 BUN 8 Creatinine 0.87 BUN/Creatinine Ratio 9.2 L Random Glucose 127 H Serum Osmolality 257.0 L Calcium 8.5 Total Bilirubin 0.5 AST 31 ALT 22 Alkaline Phosphatase 48 Creatine Kinase 32 CK-MB (CK-2) 0.9 CK-MB (CK-2) % Not Reportable Troponin I 0.04 Serum Total Protein 7.4 Albumin 3.7 Globulin 3.7 H Albumin/Globulin Ratio 1.0 L Urine Color Yellow Urine Appearance Clear Urine pH 6.0 Ur Specific Canmer 1.020 Urine Protein Trace Urine Glucose (UA) Negative Urine Ketones Negative Urine Blood Negative Urine Nitrite Negative Urine Bilirubin Negative Urine Urobilinogen 0.2 Ur Leukocyte Esterase Negative Urine RBC 1-3 Urine WBC 3-5 H Ur Epithelial Cells 10-20 Urine Bacteria Rare Urine Mucus Trace Vital Signs - 24 hr 07/03/20 07/03/20 07/03/20 12:40 12:50 14:03 Temperature 98.8 F Pulse Rate [ 72 72 70 pulse ox] Respiratory 20 20 20 Rate Blood Pressure 119/58 139/52 [Left Arm] O2 Sat by Pulse 96 94 L Oximetry Departure - Departure Clinical Impression: Syncope, COVID-19 Disposition: Admit Patient Referrals: ASHELY ROSAS MD [Primary Care Provider] - 1-2 Weeks Home Medications: Ambulatory Orders ALPRAZolam [Xanax] 0.25 mg PO DAILY 01/07/16 Aspirin [Aspirin Adult Low Dose] 81 mg PO DAILY 01/07/16 Chlorthalidone 25 mg PO DAILY 01/07/16 Esomeprazole Magnesium [Nexium] 40 mg PO DAILY 01/07/16 Metoprolol Succinate [Metoprolol Succinate ER] 50 mg PO BEDTIME 01/07/16 amLODIPine BESYLATE [Norvasc] 2 mg PO DAILY 01/07/16 Losartan Potassium 100 mg PO DAILY 11/07/18 Potassium Chloride [Potassium Chloride ER] 10 meq PO DAILY 11/07/18 Decision To Admit - Decistion To Admit Decision to Admit Date: 07/03/20 Decision to Admit Time: 14:57
[2020-07-03] MEDS ORDERED: ONDANSETRON INJ 4 MG/2 ML VIAL IV ONE (12:45)
[2020-07-03] MEDS ORDERED: SODIUM CHLORIDE 0.9% 500ML 500 ML IVS ONE (12:46)
--- NOTE | 2020-07-03 13:08 | RAD ---
EXAM DESCRIPTION: Chest,1 View CLINICAL HISTORY: Cough, suspected COVID-19 FINDINGS/ IMPRESSION: Comparison 06/23/2020 A faint area of groundglass/patchy opacity in the left mid to lower lung zone and retrocardiac compatible with infectious infiltrate. COVID-19 could give this appearance. Right lung is clear. No pleural effusion. No pneumothorax. No acute bony abnormality Electronically signed by: Agustin De Leon MD 07/03/2020 1:07 PM INSTRUMENT AND ELECTRICAL TECHNICIAN
[2020-07-03] MEDS ORDERED: KCL 20MEQ/WATER FOR INJ 100ML 20 MEQ in PREMIX BAG 1 BAG IVPB ONE (14:07)
[2020-07-03] MEDS ORDERED: SODIUM CHLORIDE 0.9% 1000ML 1,000 ML ONE (14:30)
[2020-07-03] MEDS ORDERED: REMDESIVIR 200 MG in SODIUM CHLORIDE 0.9% 250ML 250 ML IVPB ONE (14:58)
[2020-07-03] MEDS ORDERED: DEXAMETHASONE INJ 10 MG/ML VIAL IV ONE (14:58)
[2020-07-03] MEDS ORDERED: cefTRIAXone SODIUM 1 GM in SODIUM CHL 0.9% 50ML MIN-BAG+ 50 ML IVPB ONE (15:01)
[2020-07-03] MEDS ORDERED: SODIUM CHLORIDE 0.9% (FLUSH) 10 ML SYG IV PRN (15:09)
[2020-07-03] MEDS ORDERED: MAGNESIUM SULFATE PREMIX 2GM 2 GM in PREMIX BAG 1 BAG IVPB ONE (15:20)
--- NOTE | 2020-07-03 15:26 | HP ---
COLLABORATING PHYSICIAN: Gerson Poole M.D. CHIEF COMPLAINT: Syncope. HISTORY OF PRESENT ILLNESS: This is a 80 year-old female who was actually in the Emergency Room with her . She was sitting with him but then had a syncopal episode. She did not have any shortness of breath or chest pain or anything like that prior to the event, just completely passed out. The Emergency Room physician tried to wake her up and she would not really wake up. She finally came around and therefore she was placed in another room by herself. Incidentally, she was tested for COVID as well which was positive. This patient approximately 10 days ago was placed on antibiotics for a urinary tract infection. She has had some nausea and vomiting over the last 24 hours as well. In the Emergency Room, her EKG did not show any acute changes. She did have a good blood pressure, normal heart rate. No distress. She had no focal deficits in the Emergency Room. Her chest x-ray did have a little bit of patchy infiltrate on the left side. Labs were done. She did have a mildly low potassium at 3.2 and magnesium at 1.7, otherwise there was not any significant abnormalities. She was referred for admission for syncope for observation, however once again incidentally she has COVID as well. She has had a slight nonproductive cough as an outpatient as well. PAST MEDICAL HISTORY: 1. Hypertension. 2. Hyperlipidemia. 3. Prediabetes. PAST SURGICAL HISTORY: 1. Cholecystectomy. 2. Mastectomy. 3. Hernia repair. CURRENT MEDICATIONS: Please see Med. Rec. list once verified in the computer. ALLERGIES: AZITHROMYCIN. FAMILY HISTORY: Mother at age 82 of breast cancer. She has 13 brothers and sisters, some with hypertension, some with diabetes. SOCIAL HISTORY: The patient is . She has no history of smoking. No alcohol. No illicit drugs. REVIEW OF SYSTEMS: CONSTITUTIONAL: Positive for fever, no significant chills. No recent weight loss or weight gain. Positive for fatigue. HEENT: Positive for runny nose. No sore throat. RESPIRATORY: Positive for cough. No hemoptysis or pleuritic chest pain. CARDIOVASCULAR: No chest pain, palpitations or peripheral edema. GASTROINTESTINAL: Positive for some nausea and vomiting. No diarrhea, constipation or abdominal pain. GENITOURINARY: No dysuria, frequency or flank pain, although she was recently treated for a urinary tract infection which showed to be E. coli on the last culture. It was pansensitive. ENDOCRINE: No polydipsia, polyuria or polyphagia. No heat or cold intolerance. MUSCULOSKELETAL: No joint pain, joint swelling or muscle cramps. SKIN: No rashes, lesions or wounds. NEUROLOGIC: Positive for syncope. No paresthesias or seizures. PHYSICAL EXAMINATION: VITAL SIGNS: Blood pressure 139/52, heart rate 70, respiratory rate 20, temperature 98.8, oxygen saturation 94%. GENERAL: Ms. Henriquez is a 80 year-old female who is in no active distress currently. NEUROLOGIC: The patient is alert. LUNGS: Clear to auscultation bilaterally. CARDIOVASCULAR: Regular rate and rhythm. Normal S1, S2. ABDOMEN: Soft. Positive bowel sounds. EXTREMITIES: Lower extremities with no significant edema. LABORATORY: Labs and films are discussed in History of Present Illness. ASSESSMENT: 1. Syncopal episode. 2. COVID pneumonitis. 3. Electrolyte imbalance. 4. Hypertension. PLAN: The patient will be admitted into observation with continuous cardiac monitoring and neurological checks every 4 hours regarding the syncopal episode. Will replenish the electrolytes and recheck labs in the morning. Regarding COVID, she did show some pneumonitis on x-ray, although she is not hypoxic. Will go ahead and start her on Remdesivir, Dexamethasone and empiric Rocephin as she is allergic to azithromycin. Placed on bronchodilator therapy, Mucinex as well as bronchial hygiene as well. Will check serial labs and x-rays as needed. If she remains stable over the next 24 hours, she can potentially go home if she does not have any worsening of the COVID pneumonitis. [facility][id number] [facility]
[2020-07-03] MEDS ORDERED: IV SET AND CAP CHANGE INJ INJ SCH (15:30)
[2020-07-03] MEDS: ALBUTEROL INHALER 64 PUFF/8GM INH SCH ×2 (16:10→21:26)
[2020-07-03] MEDS ORDERED: ENOXAPARIN SODIUM 40 MG/0.4 ML SYG SUBCU SCH (17:00)
[2020-07-03] MEDS: LACTATED RINGERS 1,000 ML IVS PRN (17:53)
[2020-07-03] MEDS ORDERED: ALPRAZolam 0.25 MG TAB PO PRN (19:21)
[2020-07-03] MEDS: guaiFENesin ER TAB 600 MG TAB PO SCH (20:18)
[2020-07-03] MEDS ORDERED: METOPROLOL SUCCINATE XL 50 MG TAB PO SCH (21:00)
[2020-07-04] MEDS: LACTATED RINGERS 1,000 ML IVS PRN (05:55)
[2020-07-04] MEDS ORDERED: DEXAMETHASONE INJ 10 MG/ML VIAL IV SCH (09:00)
[2020-07-04] MEDS ORDERED: ASPIRIN (ENTERIC COATED) 81 MG TAB PO SCH (09:00)
[2020-07-04] MEDS ORDERED: PANTOPRAZOLE SODIUM TAB 40 MG PO SCH (09:00)
[2020-07-04] MEDS ORDERED: amLODIPine BESYLATE 5 MG TAB PO SCH (09:00)
[2020-07-04] MEDS ORDERED: NON-FORMULARY MEDICATION 1 EA MIS (Esomeprazole Magnesium [Nexium] 40 MG) PO SCH (09:00)
[2020-07-04] MEDS ORDERED: LOSARTAN POTASSIUM 100 MG TAB PO SCH (09:00)
[2020-07-04] MEDS ORDERED: REMDESIVIR 100 MG in SODIUM CHLORIDE 0.9% 250ML 250 ML IVPB SCH (09:00)
[2020-07-04 09:04] VITALS: TEMP 96.9; O2SAT 100
[2020-07-04] MEDS: guaiFENesin ER TAB 600 MG TAB PO SCH (09:14)
[2020-07-04 10:06] VITALS: BP 118/66
[2020-07-04] MEDS ORDERED: cefTRIAXone SODIUM 1 GM in SODIUM CHL 0.9% 50ML MIN-BAG+ 50 ML IVPB SCH (17:00)
--- NOTE | 2020-07-06 08:53 | DS ---
SUPERVISING PHYSICIAN: Gerson Poole MD ADMISSION DIAGNOSIS: 1. Syncopal episode. 2. COVID pneumonitis. 3. Electrolyte imbalance. 4. Hypertension. DISCHARGE DIAGNOSIS: 1. Mild hyponatremia, resolved with fluids. 2. Syncopal episode, possibly due to dehydration and electrolyte imbalance with no recurrence. 3. COVID pneumonitis, stable. 4. Hypertension. REASON FOR HOSPITALIZATION: This is a 80 year-old female who was actually in the Emergency Room with her . She was sitting with him but then had a syncopal episode. She did not have any shortness of breath or chest pain or anything like that prior to the event, just completely passed out. The Emergency Room physician tried to wake her up and she would not really wake up. She finally came around and therefore she was placed in another room by herself. Incidentally, she was tested for COVID as well which was positive. This patient approximately 10 days ago was placed on antibiotics for a urinary tract infection. She has had some nausea and vomiting over the last 24 hours as well. In the Emergency Room, her EKG did not show any acute changes. She did have a good blood pressure, normal heart rate. No distress. She had no focal deficits in the Emergency Room. Her chest x-ray did have a little bit of patchy infiltrate on the left side. Labs were done. She did have a mildly low potassium at 3.2 and magnesium at 1.7, otherwise there was not any significant abnormalities. She was referred for admission for syncope for observation, however once again incidentally she has COVID as well. She has had a slight nonproductive cough as an outpatient as well. LABORATORY: White count on discharge was 2,000. Differential showed a slight left shift with 2 bands. Coagulation studies showed normalizing D-dimer at 508, fibrocystic 461. Chemistries showed sodium 132 corrected from sodium of 128 on admission with hypomagnesemia resolved at discharge at 2.2. Liver functions all within normal limits. Urinalysis showed 3 to 5 WBCs, otherwise within normal limits. MICROBIOLOGY: Respiratory panel was positive for COVID, negative for all other bacterial and viral targets including including influenza. RADIOLOGY: Chest x-ray on admission per radiologic interpretation showed a faint area of ground glass opacities in the left mid lower lung zone and retrocardiac compatible with infectious infiltrate. The right lung is clear. 12-lead EKG showed normal sinus rhythm with left bundle branch block. Compared to EKG on 08/07/18, left bundle branch block was present, this is not a new finding. There were no other concerning findings on time of admission on EKG. HOSPITAL COURSE: Ms. Henriquez was admitted as noted for syncopal episode in observation with incidental finding of COVID. She was treated with IV fluids. Electrolytes were replaced with magnesium and other IV fluids as appropriate to care. Given her diagnosis of COVID showing some mild pneumonitis on x-ray, but not hypoxic, she was started on remdesivir, Decadron and empiric coverage with Rocephin, but she is allergic to azithromycin. She had bronchodilator therapy while she was here. Her vital signs showed she was stable on the day of discharge and maintaining O2 saturations up to 98-100% on room air. Therefore, it was felt she was stable enough to discharge to continue with outpatient management. Vital signs on discharge showed temperature 96.9, pulse 67, blood pressure 144/79, respirations 19 to 20, saturation 98% on room air. PLAN: Ms. Henriquez was discharged on 07/04/20. She is to followup with Dr. Bashir on 07/09/20 at 8:45 AM with a tele-visit. She was to resume her usual diet. She was to increase activity as tolerated. Given that she was not hypoxic on room air, she did not go home on any oxygen. She was continued on Decadron, cefdinir and albuterol. She is to return to the ER for any concerning symptoms or call Dr. Bashir's office. Medications prescribed on discharge include: 1. Decadron 6 mg daily, #7, no refills. 2. Guaifenesin 600 mg twice daily while on antibiotics. 3. Cefdinir 300 mg twice daily, #14, no refills. 4. Albuterol inhaler 2 puffs q.4h. as needed for shortness of breath. CONDITION ON DISCHARGE: Stable and improved. DISPOSITION: The patient was discharged home. [facility][id number]
== END 2020-07-04 11:45 | disposition home or self-care (01) ==
LOC: ER 12:35 → MS 15:21
PROVIDERS: ADMIT Nurse Practitioner; ATTEND Nurse Practitioner Family
DX: E87.1 Hypo-osmolality and hyponatremia (principal); R55 Syncope and collapse; U07.1 COVID-19; J12.82 Pneumonia due to coronavirus disease 2019; I10 Essential (primary) hypertension; R11.2 Nausea with vomiting, unspecified; E87.8 Other disorders of electrolyte and fluid balance, not elsewhere classified; E78.5 Hyperlipidemia, unspecified; I44.7 Left bundle-branch block, unspecified; K21.9 Gastro-esophageal reflux disease without esophagitis; I25.2 Old myocardial infarction; Z87.440 Personal history of urinary (tract) infections; Z79.82 Long term (current) use of aspirin; Z79.899 Other long term (current) drug therapy; Z88.1 Allergy status to other antibiotic agents
CPT/HCPCS: 96366; 96367; 96365; 96375; 96376; 96372; J0696; J2405; J7040; J7030; J7050 ×3; J1650; J1100 ×2; J3475; J3480; J7120 ×2; 85379 ×2; 82553; 80053 ×2; 36415 ×6; 85384; 81001; 86140 ×2; 85025 ×2; 82550; 82728; 83615; 83735 ×3; 85730; 85610; 84484; 83880; 71045; 94664; 94640; 94762; 99285; 93005 ×2; G0378; 87581; 87486; 87633; 87635